=== PATIENT | female | born 1940 | race Hispanic/Latino ===

== ENCOUNTER 2023-12-06 08:54 | Day surgery (SDC) | payer OTHER ==
[2023-12-04 13:23] LABS: BASOPHILS # (AUTO) 0.04 K/uL (0.00-0.20); BASOPHILS % (AUTO) 0.6 % (0.0-5.0); EOSINOPHILS # (AUTO) 0.27 K/uL (0.00-0.70); EOSINOPHILS % (AUTO) 3.9 % (0.0-8.0); HEMATOCRIT 35.5 % (36-48); IMMATURE GRANULOCYTE ABSOLUTE 0.01 K/uL (0-1); MEAN CORPUSCULAR HEMOGLOBIN 31.6 pg (27.0-33.0); MEAN CORPUSCULAR HGB CONC 33.2 g/dL (32.0-36.0); MEAN CORPUSCULAR VOLUME 94.9 fL (79-99); MONOCYTES # (AUTO) 0.5 K/uL (0.1-1.0); NEUTROPHILS # (AUTO) 4.1 K/uL (1.8-7.7); NEUTROPHILS % (AUTO) 59.4 % (40.0-77.0); PLATELET COUNT (AUTO) 246 K/uL (130-400); RED BLOOD CELL COUNT(AUTO) 3.74 MIL/uL (4.00-5.50); RED CELL DISTRIBUTION WIDTH 13.7 % (11.0-15.5); WHITE BLOOD COUNT (AUTO) 6.9 K/uL (4.8-10.8)
[2023-12-04 13:39] LABS: POTASSIUM 4.2 mmol/L (3.5-5.1)
[2023-12-04 13:41] LABS: INR 0.98 (0.85-1.15); PROTHROMBIN TIME 10.6 SEC (9.6-11.6)
[2023-12-04 13:43] LABS: PARTIAL THROMBOPLASTIN TIME 27.6 SEC (26.3-35.5)
[2023-12-04 14:00] LABS: B-TYPE NATRIURETIC PEPTIDE 180 pg/mL (0-100)
[2023-12-04 14:11] VITALS: BP 171/71; PULSE 64; RESP 18; TEMP 98
[2023-12-04 15:35] LABS: APPEARANCE,URINE CLEAR (CLEAR); BILIRUBIN,URINE NEGATIVE (NEGATIVE); COLOR,URINE YELLOW (YELLOW); GLUCOSE, URINE (UA) 300 mg/dL (NEGATIVE); KETONES,URINE NEGATIVE (NEGATIVE); LEUKOCYTE ESTERASE ,URINE 75 Leu/uL (NEGATIVE); NITRATE,URINE NEGATIVE (NEGATIVE); OCCULT BLOOD,URINE NEGATIVE (NEGATIVE); PROTEIN,URINE 20 mg/dL (NEGATIVE); UROBILINOGEN,URINE 0.2 mg/dL (0.2-1.0)
[2023-12-04 15:45] LABS: ADD UA MICROSCOPIC YES
[2023-12-04 15:50] LABS: BACTERIA,URINE RARE /HPF (None Seen); MUCUS,URINE RARE LPF (None Seen); SQUAMOUS EPITHELIAL CELL,UR RARE /HPF (0-2)
[2023-12-06] VITALS (9 sets, daily range): BP systolic 134–178; BP diastolic 53–99; PULSE 62–69; RESP 16–18; TEMP 97–98
[~2023-12-06] VITALS: Ht 147.3 cm; Wt 59.8 kg
[~2023-12-06 08:54] MED LIST: BREO INHALER IH; METF-444 PO; ROSU10TA72 PO; TELM40TA8 PO
[2023-12-06] MEDS ORDERED: FENTanyl CITRate PF 50 MCG/1 ML 2ML VIAL ONE (12:23)
[2023-12-06] MEDS ORDERED: BIVALIRUDIN 250 MG/VIAL IV ONE (12:24)
[2023-12-06] MEDS ORDERED: IOHEXOL-350 50ML VIAL IV ONE (12:24)
[2023-12-06] MEDS ORDERED: niCARDIpine 25MG INJ IV ONE (12:24)
[2023-12-06] MEDS ORDERED: MIDAZOLAM HCL 1 MG/ML 2ML VIAL ONE (12:24)
[2023-12-06] MEDS ORDERED: IOHEXOL 350 MG/ML 100ML INFUS..BTL IV ONE ×2 (12:24→12:48)
[2023-12-06] MEDS ORDERED: NITROGLYCERIN 50MG VIAL ONE (12:25)
[2023-12-06] MEDS ORDERED: HEParin 10,000 UNIT/10ML (1,000 UNIT/ML) VIAL ONE (12:25)
[2023-12-06] MEDS ORDERED: HEParin-NS 1,000 UNIT/500 ML 1,000 ML IV ONE (12:25)
[2023-12-06] MEDS ORDERED: LIDOCAINE HCL 400MG/20ML VIAL ONE (12:27)
[2023-12-06] MEDS ORDERED: SODIUM BICARB 50MEQ 50ML VIAL 50 ML ONE (12:28)
[2023-12-06] MEDS ORDERED: IOHEXOL-350 75 ML VIAL IV ONE (12:30)
[2023-12-06] MEDS ORDERED: ATROPINE 1MG SYG IVP ONE (12:39)
[2023-12-06] MEDS ORDERED: PROTamine SULFate 10 MG/ML 25ML VIAL IV ONE (13:00)
[2023-12-06] MEDS: 0.9%NACL 1000ML 1,000 ML IV ONE (13:17)
[2023-12-06] MEDS ORDERED: LAbetaLOL 20MG SYG IV ONE (13:21)
[2023-12-06] MEDS ORDERED: 0.9%NACL 1000ML 1,000 ML IV SCH (14:00)
== END 2023-12-06 17:54 | disposition home or self-care (01) ==
LOC: DAH 08:54
PROVIDERS: ATTEND Internal Medicine Cardiovascular Disease
DX: I25.10 Atherosclerotic heart disease of native coronary artery without angina pectoris (principal); R94.39 Abnormal result of other cardiovascular function study; I44.7 Left bundle-branch block, unspecified; I11.0 Hypertensive heart disease with heart failure; I50.20 Unspecified systolic (congestive) heart failure; E11.9 Type 2 diabetes mellitus without complications; E78.5 Hyperlipidemia, unspecified; Z79.84 Long term (current) use of oral hypoglycemic drugs; Z79.01 Long term (current) use of anticoagulants; Z79.899 Other long term (current) drug therapy
CPT/HCPCS: 80048; 83880; 85025; 85610; 85730; 87086; 81001; 36415; 71045; 93005; 93458; C1894 ×3; C1769 ×2; C1760; A4649; J3010; J3490 ×4; J7030; J1644 ×2; J2250; Q9967 ×3; A4215; A4222; A4221; A4663; A4216; A4606; Q9965 ×2; J2720; A4223 ×3; 99156; 99157; J0461; J0583